=== PATIENT | male | born 1985 | race Caucasian/White ===

== ENCOUNTER 2019-10-05 14:48 | Emergency (ER) | payer SELFPAY ==
--- NOTE | 2019-10-05 15:17 | EDM.PDOC ---
ED HPI GENERAL MEDICAL PROBLEM - General Chief Complaint: Respiratory Problem Stated Complaint: SOB Time Seen by Provider: 10/05/19 15:09 Source of Information: Reports: Patient, RN Notes Reviewed - History of Present Illness INITIAL COMMENTS - FREE TEXT/NARRATIVE: 33 year old male with cough, julieta. sore throat for most of the last 3 weeks. Feels like sx have gotten worse the last few days. Has had some chills but no major fever. Cough mostly dry but occasionally prod. of colored phlegm. 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 Generalized Pain Score (Numeric/FACES): 7 - Related Data Allergies Allergy/AdvReac Type Severity Reaction Status Date / Time No Known Allergies Allergy Verified 10/05/19 15:06 Home Meds: Home Meds Dextroamphetamine/Amphetamine [Adderall] 20 mg PO TID 10/05/19 [History] Doxycycline [Vibramycin] 100 mg PO BID #14 tab 10/05/19 [Rx] PARoxetine [Paxil] 20 mg PO DAILY 10/05/19 [History] Past Medical History Musculoskeletal History: Reports: Other (See Below) Other Musculoskeletal History: right index finger tendon repair Psychiatric History: Reports: ADHD, Depression Social & Family History - Tobacco Use Smoking Status *Q: Current Every Day Smoker Years of Tobacco use: 12 Packs/Tins Daily: 0.5 - Caffeine Use Caffeine Use: Reports: Coffee, Soda - Recreational Drug Use Recreational Drug Use: No ED ROS GENERAL - Review of Systems Review Of Systems: See Below Constitutional: Reports: Chills. Denies: Fever HEENT: Reports: Rhinitis. Denies: Throat Pain Respiratory: Reports: Cough, Sputum. Denies: Wheezing Cardiovascular: Denies: Chest Pain GI/Abdominal: Denies: Abdominal Pain, Nausea, Vomiting Musculoskeletal: Reports: No Symptoms Skin: Reports: No Symptoms Neurological: Reports: No Symptoms ED EXAM, GENERAL - Physical Exam Exam: See Below General Appearance: Alert, No Apparent Distress Eye Exam: Bilateral Eye: PERRL Nose: Normal Inspection Throat/Mouth: Normal Inspection, Normal Oropharynx Head: Atraumatic Neck: Supple. No: Lymphadenopathy (L), Lymphadenopathy (R) Respiratory/Chest: No Respiratory Distress, Lungs Clear, Respiratory Distress. No: Rhonchi, Wheezing Cardiovascular: Tachycardia Extremities: Normal Inspection Neurological: Oriented, No Motor/Sensory Deficits Skin Exam: Warm, Dry, Normal Color Course - Vital Signs Last Recorded V/S: Last Vital Signs Temp 98.4 F 10/05/19 15:12 Pulse 108 H 10/05/19 15:12 Resp 20 10/05/19 15:12 BP 124/94 H 10/05/19 15:12 Pulse Ox 124 H 10/05/19 15:12 - Re-Assessments/Exams Free Text/Narrative Re-Assessment/Exam: 10/06/19 16:09 CXR nl, discharge instr. as documented. Departure - Departure Time of Disposition: 16:01 Disposition: Home, Self-Care 01 Condition: Fair Clinical Impression: Bronchitis, Upper respiratory infection - Discharge Information Prescriptions: Doxycycline [Vibramycin] 100 mg PO BID #14 tab Instructions: Acute Bronchitis, Adult Referrals: PCP,None [Primary Care Provider] - Forms: ED Department Discharge Additional Instructions: Rest, vaporizer or humidifier as needed, doxycycline 100 mg twice daily for 1 week. Prescription has been sent electronically to [facility] located at the [employer] [facility]. You may continue to use the albuterol inhaler 2- 3 times daily as needed for severe cough or wheezing. Follow-up clinic if not much better within 5-7 days as expected. Sepsis Event Note - Evaluation Sepsis Screening Result: No Definite Risk - Focused Exam Date Exam was Performed: 10/06/19 Time Exam was Performed: 16:07
--- NOTE | 2019-10-05 19:03 | CR ---
Chest: 2 views of the chest were obtained. Comparison: No previous chest x-ray. Heart felt to be slightly enlarged. Possible small pleural effusions are noted. Lungs otherwise are clear. Bony structures are unremarkable. Impression: 1. Heart appears slightly prominent with possible small pleural effusions. 2. Please consider echocardiogram to evaluate for pericardial effusion. Diagnostic code #3 This report was dictated in [place] Standard Time
== END 2019-10-05 16:13 | disposition home or self-care (01) ==
LOC: JD.ED 14:48
DX: J40 Bronchitis, not specified as acute or chronic (principal); J06.9 Acute upper respiratory infection, unspecified; F32.9 Major depressive disorder, single episode, unspecified; F17.210 Nicotine dependence, cigarettes, uncomplicated; Z79.899 Other long term (current) drug therapy
CPT/HCPCS: 71046; 71046-26; 99282; 99283-25

== ENCOUNTER 2019-10-11 15:09 | Emergency (ER) | payer SELFPAY ==
[2019-10-11] MEDS ORDERED: Sodium Chloride 0.9% 10 ML Syringe FLUSH PRN (15:49)
--- NOTE | 2019-10-11 16:05 | EDM.PDOC ---
<Lina Jacobo - Last Filed: 10/11/19 15:52> ED HPI GENERAL MEDICAL PROBLEM - General Chief Complaint: Respiratory Problem Stated Complaint: SOB AND CHEST PAIN Time Seen by Provider: 10/11/19 15:26 Source of Information: Reports: Patient History Limitations: Reports: No Limitations - History of Present Illness INITIAL COMMENTS - FREE TEXT/NARRATIVE: 33-year-old male presents with shortness of breath since early September. He states that he was seen first in the [facility] where they prescribed him prednisone. He stopped taking the prednisone because he had noticed weight gain. He then came to the ED on October 05 due to lack of improvement in symptoms. At that time he had cough, congestion, and sore throat and was prescribed Doxycycline. He notes that he felt very good one day after taking the doxycycline, but then symptoms returned after that day. Today he notes that the shortness of breath has not improved and is worsened even by slight exertion. He states that he is only able to take a few steps before he becomes winded. The patient has also noticed palpitations, but denies chest pain. He has noticed significant swelling in his lower extremities bilaterally, his abdomen, and his scrotum. He does still have the cough with clear mucus production, but denies congestion and sore throat now. When asked about heart history, he states he had an EKG done at the [facility] where they found history of an CO but were unsure of the timeline. He notes that they were trying to track down his records from [place] for previous EKGs. He has also been having nausea and vomiting the past two days , which has lead to a decreased appetite. Duration: Constant Location: Reports: Chest Quality: Reports: Other (palpitations) Associated Symptoms: Reports: cough w sputum (clear), Loss of Appetite, Nausea/ Vomiting, Shortness of Breath. 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 (albuterol), Other Medication(s) ( Doxycycline) - Related Data Allergies Allergy/AdvReac Type Severity Reaction Status Date / Time No Known Allergies Allergy Verified 10/11/19 15:20 Home Meds: Home Meds Dextroamphetamine/Amphetamine [Adderall] 20 mg PO TID 10/05/19 [History] Doxycycline [Vibramycin] 100 mg PO BID #14 tab 10/05/19 [Rx] PARoxetine [Paxil] 20 mg PO DAILY 10/05/19 [History] Past Medical History - Past Health History Medical/Surgical History: Denies Medical/Surgical History Musculoskeletal History: Reports: Other (See Below) Other Musculoskeletal History: right index finger tendon repair Psychiatric History: Reports: ADHD, Depression Social & Family History - Tobacco Use Smoking Status *Q: Current Every Day Smoker Years of Tobacco use: 12 Packs/Tins Daily: 0.5 - Caffeine Use Caffeine Use: Reports: Coffee - Recreational Drug Use Recreational Drug Use: No ED ROS GENERAL - Review of Systems Review Of Systems: See Below Constitutional: Reports: Fatigue, Decreased Appetite, Weight Gain. Denies: Fever, Chills HEENT: Reports: No Symptoms Respiratory: Reports: Shortness of Breath, Cough, Sputum (clear) Cardiovascular: Reports: Dyspnea on Exertion, Edema (abdomen, bilateral lower extremities, scrotum ), Palpitations. Denies: Chest Pain, Blood Pressure Problem, Syncope GI/Abdominal: Reports: Abdominal Pain (Right sided ), Diarrhea, Distension, Nausea, Vomiting. Denies: Bloody Stool, Constipation, Hematemesis : Reports: No Symptoms Musculoskeletal: Reports: No Symptoms Skin: Reports: No Symptoms Neurological: Reports: No Symptoms Psychiatric: Reports: Depression, Other (ADHD) Hematologic/Lymphatic: Reports: No Symptoms Immunologic: Reports: No Symptoms ED EXAM, GENERAL - Physical Exam Exam: See Below Exam Limited By: No Limitations General Appearance: Alert, WD/WN, Moderate Distress Throat/Mouth: Normal Inspection, Normal Lips, Normal Teeth, Normal Gums, Normal Oropharynx, Normal Voice, No Airway Compromise Head: Atraumatic, Normocephalic Respiratory/Chest: Lungs Clear, Normal Breath Sounds, No Accessory Muscle Use, Chest Non-Tender, Respiratory Distress Cardiovascular: Normal Peripheral Pulses, JVD, Tachycardia, Other (1+ pitting edema of bilateral lower extremities) Peripheral Pulses: 2+: Radial (L), Radial (R) GI/Abdominal: Normal Bowel Sounds, Soft, No Organomegaly, Distended, Tender ( Right sided ). No: Guarding, Rebound, Hernia (Male) Exam: Other (patient states there is scrotal swelling) Extremities: Normal Range of Motion, Non-Tender, Normal Capillary Refill, Mottled (hands), Other (clubbing of nails) Neurological: Alert, Oriented, Normal Cognition, No Motor/Sensory Deficits Psychiatric: Normal Affect, Normal Mood Skin Exam: Warm, Dry, Intact, No Rash, Mottled (hands) Course - Vital Signs Last Recorded V/S: Last Vital Signs Temp 97.2 F 10/11/19 15:16 Pulse 123 H 10/11/19 15:16 Resp 28 H 10/11/19 15:16 BP 120/96 H 10/11/19 15:16 Pulse Ox 98 10/11/19 15:16 - Orders/Labs/Meds Orders: Active Orders 24 hr Category Date Time Status EKG 12 Lead [EKG Documentation Completion] [] ROUTINE Care 10/11/19 15:17 Active EKG 12 Lead [EKG Documentation Completion] [] STAT Care 10/11/19 15:49 Inactive Peripheral IV Care [RC] . DIRECTED Care 10/11/19 15:50 Active UA W/DAVID RFLX IF INDICATED [URIN] Stat Lab 10/11/19 17:20 Ordered Sodium Chloride 0.9% [Saline Flush] Med 10/11/19 15:49 Active 10 ml FLUSH ASDIRECTED PRN Peripheral IV Insertion Adult [OM.PC] Stat Oth 10/11/19 15:50 Ordered Medication Orders Sodium Chloride (Saline Flush) 10 ml FLUSH ASDIRECTED PRN PRN Reason: Keep Vein Open Last Admin: 10/11/19 16:25 Dose: 10 ml Labs: Laboratory Tests 10/11/19 10/11/19 10/11/19 Range/Units 16:00 16:00 16:00 WBC 9.87 H (4.23-9.07) K/mm3 RBC 5.25 (4.63-6.08) M/mm3 Hgb 15.7 (13.7-17.5) gm/dl Hct 46.7 (40.1-51.0) % MCV 89.0 (79.0-92.2) fl MCH 29.9 (25.7-32.2) pg MCHC 33.6 (32.2-35.5) g/dl RDW Std Deviation 44.7 H (35.1-43.9) fL Plt Count 297 (163-337) K/mm3 MPV 11.9 (9.4-12.3) fl Neutrophils % (Manual) 73 H (40-60) % Band Neutrophils % 0 (0-10) % Lymphocytes % (Manual) 20 (20-40) % Atypical Lymphs % 0 % Monocytes % (Manual) 6 (2-10) % Eosinophils % (Manual) 1 (0.8-7.0) % Basophils % (Manual) 0 L (0.2-1.2) Platelet Estimate Adequate RBC Morph Comment Normal ESR (0-15) mm/hr Sodium 135 L (136-145) mEq/L Potassium 5.2 H (3.5-5.1) mEq/L Chloride 103 (98-107) mEq/L Carbon Dioxide 22 (21-32) mEq/L Anion Gap 15.2 H (5-15) BUN 29 H (7-18) mg/dL Creatinine 1.7 H (0.7-1.3) mg/dL Est Cr Clr Drug Dosing 71.19 mL/min Estimated GFR (MDRD) 46 (>60) mL/min BUN/Creatinine Ratio 17.1 (14-18) Glucose 115 H (74-106) mg/dL Lactic Acid (0.4-2.0) mmol/L Calcium 8.8 (8.5-10.1) mg/dL Total Bilirubin 1.2 H (0.2-1.0) mg/dL AST 54 H (15-37) U/L ALT 95 H (16-63) U/L Alkaline Phosphatase 74 (46-116) U/L Troponin I 0.024 (0.00-0.056) ng/mL C-Reactive Protein 2.0 H* (<1.0) mg/dL NT-Pro-B Natriuret Pep (0-125) pg/mL Total Protein 6.4 (6.4-8.2) g/dl Albumin 3.0 L (3.4-5.0) g/dl Globulin 3.4 gm/dL Albumin/Globulin Ratio 0.9 L (1-2) 10/11/19 10/11/19 10/11/19 Range/Units 16:00 16:00 16:00 WBC (4.23-9.07) K/mm3 RBC (4.63-6.08) M/mm3 Hgb (13.7-17.5) gm/dl Hct (40.1-51.0) % MCV (79.0-92.2) fl MCH (25.7-32.2) pg MCHC (32.2-35.5) g/dl RDW Std Deviation (35.1-43.9) fL Plt Count (163-337) K/mm3 MPV (9.4-12.3) fl Neutrophils % (Manual) (40-60) % Band Neutrophils % (0-10) % Lymphocytes % (Manual) (20-40) % Atypical Lymphs % % Monocytes % (Manual) (2-10) % Eosinophils % (Manual) (0.8-7.0) % Basophils % (Manual) (0.2-1.2) Platelet Estimate RBC Morph Comment ESR 8 (0-15) mm/hr Sodium (136-145) mEq/L Potassium (3.5-5.1) mEq/L Chloride (98-107) mEq/L Carbon Dioxide (21-32) mEq/L Anion Gap (5-15) BUN (7-18) mg/dL Creatinine (0.7-1.3) mg/dL Est Cr Clr Drug Dosing mL/min Estimated GFR (MDRD) (>60) mL/min BUN/Creatinine Ratio (14-18) Glucose (74-106) mg/dL Lactic Acid 1.7 (0.4-2.0) mmol/L Calcium (8.5-10.1) mg/dL Total Bilirubin (0.2-1.0) mg/dL AST (15-37) U/L ALT (16-63) U/L Alkaline Phosphatase (46-116) U/L Troponin I (0.00-0.056) ng/mL C-Reactive Protein (<1.0) mg/dL NT-Pro-B Natriuret Pep 9588 H (0-125) pg/mL Total Protein (6.4-8.2) g/dl Albumin (3.4-5.0) g/dl Globulin gm/dL Albumin/Globulin Ratio (1-2) Meds: Medications Generic Name Dose Route Start Last Admin Trade Name Freq PRN Reason Stop Dose Admin Sodium Chloride 10 ml 10/11/19 15:49 10/11/19 16:25 Saline Flush FLUSH 10 ml ASDIRECTED PRN Administration Keep Vein Open Discontinued Medications Generic Name Dose Route Start Last Admin Trade Name Freq PRN Reason Stop Dose Admin Furosemide 40 mg 10/11/19 16:07 10/11/19 16:24 Lasix IVPUSH 10/11/19 16:08 40 mg NOW ONE Administration Departure - Departure Disposition: DC/Tfer to [facility] 02 Clinical Impression: Pericardial effusion, Renal insufficiency Congestive heart failure Qualifiers: Heart failure type: unspecified Heart failure chronicity: unspecified Qualified Code(s): I50.9 - Heart failure, unspecified - Discharge Information Referrals: Hayley Saldivar MD [Primary Care Provider] - Forms: ED Department Discharge Sepsis Event Note - Evaluation Sepsis Screening Result: Possible Sepsis Risk - Focused Exam Vital Signs: Vital Signs Temp Pulse Resp BP Pulse Ox 10/11/19 15:16 97.2 F 123 H 28 H 120/96 H 98 Date Exam was Performed: 10/11/19 Time Exam was Performed: 15:52 - My Orders Last 24 Hours: My Active Orders 10/11/19 15:17 EKG 12 Lead [EKG Documentation Completion] [RC] ROUTINE 10/11/19 15:49 EKG 12 Lead [EKG Documentation Completion] [RC] STAT Sodium Chloride 0.9% [Saline Flush] 10 ml FLUSH ASDIRECTED PRN 10/11/19 15:50 Peripheral IV Care [RC] . DIRECTED Peripheral IV Insertion Adult [OM.PC] Stat 10/11/19 17:20 UA W/DAVID RFLX IF INDICATED [URIN] Stat - Assessment/Plan Last 24 Hours: My Active Orders 10/11/19 15:17 EKG 12 Lead [EKG Documentation Completion] [RC] ROUTINE 10/11/19 15:49 EKG 12 Lead [EKG Documentation Completion] [RC] STAT Sodium Chloride 0.9% [Saline Flush] 10 ml FLUSH ASDIRECTED PRN 10/11/19 15:50 Peripheral IV Care [RC] . DIRECTED Peripheral IV Insertion Adult [OM.PC] Stat 10/11/19 17:20 UA W/DAVID RFLX IF INDICATED [URIN] Stat <Alberto Orozco - Last Filed: 10/11/19 18:44> Course - Re-Assessments/Exams Free Text/Narrative Re-Assessment/Exam: 10/11/19 18:37 Initial hx and exam was done by MIGUEL Parker student. I agree with her hx and exam as documented. I have also examined and interviewed patient. Of note chest x-ray showed cardiomegaly raising a possibility of pericardial effusion. Small left-sided pleural effusion. There is also a small area of increased density left lung base due to increasing atelectasis or possible developing pneumonia. See radiology report for details. Significant history and findings as documented include what patient reports as 30 pound weight gain over the past month, progressive dyspnea over the past month and especially the past week , peripheral leg edema on physical exam, tachypnea and tachycardia on presentation to ED and persistent tachypnea tachycardia throughout his ED stay. White blood count was normal, C-reactive protein 2.0, sedimentation rate 8, BNP about 9600. He also does have renal insufficiency elevated BUN, creatinine 1.7 , GFR of around 45. Very slight troponin leak of .024. EKG shows tachycardia, Q waves anteriorly leads, mild ST elevation V2 and V3. We do not have cardiology at this facility. I believe it is strongly in his best interest to transfer to one of the [facility] so he can get the evaluation and treatment he needs in a timely manner. I have discussed this with Dr Vang, [facility] who does accept patient in transfer. We will be transferring him by ground ambulance. Departure - Departure Time of Disposition: 18:30 Condition: Serious Sepsis Event Note - Focused Exam Date Exam was Performed: 10/11/19 Time Exam was Performed: 18:37
[2019-10-11] MEDS ORDERED: Furosemide 40 MG/4 ML VIAL IVPUSH ONE (16:07)
--- NOTE | 2019-10-11 16:43 | CR ---
Chest: 2 views of the chest were obtained. Comparison: Previous chest x-ray of 10/05/19. Small left-sided pleural effusion is seen which is more prominent than on previous exam. Mild increased density within left lung bases also noted. Heart size is enlarged. Impression: 1. Heart is enlarged. This raises the possibility of pericardial effusion. 2. Small left-sided pleural effusion which has increased in amount from previous exam. 3. Increasing density within left lung base either due to increasing atelectasis or possibly developing pneumonia. Diagnostic code #3 Study was dictated in [place] Standard Time
== END 2019-10-11 18:45 ==
LOC: JD.ED 15:09
DX: I31.3 Pericardial effusion (noninflammatory) (principal); I87.8 Other specified disorders of veins; N28.9 Disorder of kidney and ureter, unspecified; J90 Pleural effusion, not elsewhere classified; R60.0 Localized edema; R68.3 Clubbing of fingers; I51.7 Cardiomegaly; F32.9 Major depressive disorder, single episode, unspecified; F17.210 Nicotine dependence, cigarettes, uncomplicated
CPT/HCPCS: 36415; 71046; 80053; 81003; 83605; 83880; 84484; 85007; 85027; 85652; 86140; 93005; 96374; 99285; J1940; 93010; 99284